=== PATIENT | female | born 1990 | race Caucasian/White ===

== ENCOUNTER 2024-04-20 18:48 | Emergency (ER) | payer OTHER, SELFPAY ==
[2024-04-20 18:51] VITALS: BP 148/86
[2024-04-20 19:12] LABS: Hematocrit 38.8 % (37.0-47.0); Hemoglobin 13.3 g/dL (12.0-16.0); Mean Corp Hgb Conc. 34.3 g/dL (33.0-37.0); Mean Corpuscular Hgb 28.8 pg (27.0-31.0); Platelet Count 362 10^3/uL (130-400); Red Blood Cell Count 4.62 10^6/uL (4.20-5.40); Red Cell Dist. Width 12.5 % (11.5-14.5); White Blood Cell Count 12.4 10^3/uL (4.8-10.8)
[2024-04-20 19:28] LABS: HCG, Serum Qualitative Screen Negative
[2024-04-20 19:29] LABS: Blood Urea Nitrogen 18 mg/dl (7-17); Calcium 9.9 mg/dl (8.4-10.2); Carbon Dioxide 22 mmol/L (22-30); Chloride 103 mmol/L (98-107); Glucose 98 mg/dl (70-99); Potassium 4.2 mmol/L (3.5-5.1); Sodium 140 mmol/L (135-145); eGFR > 60.00
[2024-04-20 20:58] VITALS: BP 143/93
[2024-04-20 22:35] VITALS: BP 118/72
[2024-04-20 22:47] LABS: Urine Albumin Negative (Neg - Trace); Urine Bilirubin Negative (Negative); Urine Character Clear (Clear); Urine Color Yellow; Urine Glucose Negative (Negative); Urine Ketone Negative (Negative); Urine Leukocyte Negative (Negative); Urine Nitrite Negative (Negative); Urine Occult Blood Negative (Negative); Urine Urobilinogen Negative (Neg - 1+)
--- NOTE | 2024-04-20 22:53 | ED.GENMED ---
History of Present Illness
<Camron Mchugh PA-C - Last Filed: 04/23/24 14:25>
General
Chief Complaint: Female Shank Boner/Gu symptoms
Source: patient
Time Seen by Provider: 04/20/24 21:36
History of Present Illness
History of Present Illness:
33-year-old female with past medical history of asthma presenting to the emergency department for evaluation of right-sided lower pelvic discomfort that started earlier today, felt similar to previous episodes of pelvic pain but a little bit more
intense and constant prompting her to come to the ER for further evaluation. Patient states when she urinates symptoms does seem to be slightly improved however will then return. Denies any urinary menses/urgency/dysuria or hematuria. Last
menstrual period was 1 week ago and has a history of ovarian cyst but is unsure if this feels similar. Denies any fevers, chills, rigors, nausea, vomiting, bowel changes. She is denying any vaginal bleeding or discharge. Social history
noncontributory.
Past History
<Camron Mchugh PA-C - Last Filed: 04/23/24 14:25>
Past History
ED Past Medical History: Asthma and Other (Anxiety); Negative HTN, Hypercholesterolemia or NIDDM
ED Past Surgical History: Orthopedic (bilateral foot surgery for plantar fascia) and Other (Bladder procedure)
Social History
Tobacco: Non-smoker
Alcohol: Occasional
Drug: None
Personal: Single
Living: with family
Employment: Employed
Family History
Family History: Other
Review of Systems
<Camron Mchugh PA-C - Last Filed: 04/23/24 14:25>
Review of Systems
All Other Systems: ROS reviewed and negative except as documented in HPI and ROS
Phy Exam
<Camron Mchugh PA-C - Last Filed: 04/23/24 14:25>
Physical Exam
Physical Exam:
GENERAL: Alert , in no apparent distress
EYE: clear conjunctiva b/l
HEAD: NCAT
ENT: o/p clr, mmm.
CARDIAC: Regular rate and rhythm .
LUNGS: Clear breath sounds bilaterally, no acute respiratory distress, no wheezes/rales/rhonchi
ABDOMEN: Soft, without focal tenderness, no r/g, no CVA tenderness negative Tineo sign, no tenderness at McBurney's point
NEUROLOGICAL: Alert and oriented
SKIN: Warm and dry, skin intact.
MUSCULOSKELETAL: well perfused.
PSYCH: Normal and appropriate interaction.
Scores
<Camron Mchugh PA-C - Last Filed: 04/23/24 14:25>
Heart Failure Risk
Heart Failure Risk Score: Not Applicable
Heart Score for Chest Pain Patients
STEMI patient?: Not applicable
Withdrawal Assessment of Alcohol
Withdrawal Assessment Completed?: Not applicable
Course
<Camron Mchugh PA-C - Last Filed: 04/23/24 14:25>
Orders/Labs/Results
Orders:
Orders
04/20/24 18:54
Test Result ONCE
04/20/24 19:00
Basic Metabolic Panel Urgent
Complete Blood Count/No Diff Urgent
HCG, Serum Qualitative Screen Urgent
04/20/24 21:44
US Transvaginal [US Pelvis W Transvag Combined] Urgent
Comment:
Reason For Exam: right lower pelvic pain
04/20/24 22:31
Urinalysis Reflex To Culture Urgent
Date Specimen was Collected: 04/20/24
Time Specimen was Collected: 22:29
04/20/24 23:22
Ketorolac [Toradol] 30 mg IV NOW STA
04/21/24 00:30
CT Abd/pelvis W Iv Cont Urgent
Reason For Exam: right pelvic pain
Abnormal Lab Results
04/20/24
19:00
WBC 12.4 H 10^3/uL
(4.8-10.8)
BUN 18 H mg/dl
(7-17)
04/20/24 19:00
04/20/24 19:00
Vital Signs
Initial and Last Documented VS:
Initial Vital Signs
Temp Pulse Resp BP Pulse Ox
98.3 F 88 22 148/86 100
04/20/24 18:51 04/20/24 18:51 04/20/24 18:51 04/20/24 18:51 04/20/24 18:51
Last Documented Vital Signs
Temp Pulse Resp BP Pulse Ox
98.5 F 68 18 117/75 99
04/21/24 03:00 04/21/24 03:00 04/21/24 03:00 04/21/24 03:00 04/21/24 03:00
<Nicholas Warner MD - Last Filed: 04/21/24 02:47>
Orders/Labs/Results
Orders:
Orders
04/20/24 18:54
Test Result ONCE
04/20/24 19:00
Basic Metabolic Panel Urgent
Complete Blood Count/No Diff Urgent
HCG, Serum Qualitative Screen Urgent
04/20/24 21:44
US Transvaginal [US Pelvis W Transvag Combined] Urgent
Comment:
Reason For Exam: right lower pelvic pain
04/20/24 22:31
Urinalysis Reflex To Culture Urgent
Date Specimen was Collected: 04/20/24
Time Specimen was Collected: 22:29
04/20/24 23:22
Ketorolac [Toradol] 30 mg IV NOW STA
04/21/24 00:30
CT Abd/pelvis W Iv Cont Urgent
Reason For Exam: right pelvic pain
Abnormal Lab Results
04/20/24
19:00
WBC 12.4 H 10^3/uL
(4.8-10.8)
BUN 18 H mg/dl
(7-17)
04/20/24 19:00
04/20/24 19:00
Vital Signs
Initial and Last Documented VS:
Initial Vital Signs
Temp Pulse Resp BP Pulse Ox
98.3 F 88 22 148/86 100
04/20/24 18:51 04/20/24 18:51 04/20/24 18:51 04/20/24 18:51 04/20/24 18:51
Last Documented Vital Signs
Temp Pulse Resp BP Pulse Ox
98.5 F 68 18 117/75 99
04/21/24 03:00 04/21/24 03:00 04/21/24 03:00 04/21/24 03:00 04/21/24 03:00
<Camron Mchugh PA-C - Last Filed: 04/23/24 14:25>
MDM/Problems Addressed
Differential Diagnosis Includes:
Ovarian cysts, less concern for torsion, appendicitis, renal/ureteral colic
MDM/Problems Addressed:
33-year-old female presenting emergency department for evaluation of right lower pelvic pain that began earlier today, mostly constant. Abdominal exam is reassuring. Difficult to ascertain whether genitourinary versus GI/appendectomy. Patient
does have a very slight leukocytosis. Will send for urine. Will start with ultrasound to evaluate for possible cyst given recent menstrual. Patient declining anything for pain at this time
<Camron Mchugh PA-C - Last Filed: 04/23/24 14:25>
*Pulse Oximetry
Patient hypoxic: no
*Critical Care Note
Total Time (30-74mins, 75-104mins- exclusive of procedures): Not Applicable
<Camron Mchugh PA-C - Last Filed: 04/23/24 14:25>
Comment
Comment:
11:24 PM: Patient now requesting something for pain. 30 mg Toradol IV ordered.
<Nicholas Warner MD - Last Filed: 04/21/24 02:47>
Update Note
Update Note:
CT report reviewed and discussed with patient - no acute findings noted. Pt will be discharged home in stable condition, with recommendation for pcp f/u with any concerns.
ED Attending Note
<Camron Mchugh PA-C - Last Filed: 04/23/24 14:25>
-
Portions of this chart may have been created with voice recognition software.� Occasional wrong word or��sound alike� substitutions may have occurred due to the inherent limitations of voice recognition software.
Discharge Plan
Departure
Patient Disposition: Home (Routine Discharge)
Date of Disposition: 04/21/24
Time of Disposition: 02:46
Patient with high blood pressure during this ER visit?: Yes
Condition: Good
Discharge Problem:
Abdominal pain
Instructions: Abdominal Pain
Prescriptions:
No Action
norethindrone ac-eth estradiol [Neva 08/31 ()] 1 EACH tablet
1 ea PO DAILY
Patient Comments:
CONTROL
fluticasone propionate 1 SPRAY spray,suspension
1 spray intranasal DAILY
Referrals:
Beryl Escoto MD [Family Provider] -
Activity Restrictions/Additional Instructions:
As discussed, please follow-up with your primary care physician with any further concerns. In ED, blood work, as well as multiple imaging studies did not reveal any abnormal findings. Please return to ED with worsening symptoms, i.e.
fever/worsening pain/vomiting.
Interventions
Interventions:
*Risk Screen - Suicide Last Done: 04/20/24 18:51
*General Assessment Last Done: 04/20/24 23:39
*Neglect/Abuse Screening Last Done: 04/20/24 18:51
ED- Fall Risk Assessment Last Done: 04/21/24 03:03
*ED COVID-19 Vaccine History Last Done: 04/20/24 23:39
*Nursing Disposition Last Done: 04/21/24 03:03
ED-Female Genitourinary Assessment Last Done: 04/20/24 22:00
Discharge Date and Time
Discharge Date/Time: 04/21/24 03:04
Print Language: MALTESE
[2024-04-20] MEDS: TORADOL 30 MG IV (23:32)
[2024-04-21 03:00] VITALS: BP 117/75
== END 2024-04-21 03:04 | disposition home or self-care (01) ==
LOC: EMR 18:48
PROVIDERS: Physician Assistant Medical; EMERGENCY PHYSICIAN Emergency Medicine; FAMILY PHYSICIAN Internal Medicine
DX: R10.31 Right lower quadrant pain (principal); R10.2 Pelvic and perineal pain; R03.0 Elevated blood-pressure reading, without diagnosis of hypertension; N83.209 Unspecified ovarian cyst, unspecified side; J45.909 Unspecified asthma, uncomplicated; F41.9 Anxiety disorder, unspecified; Z88.8 Allergy status to other drugs, medicaments and biological substances; Z91.048 Other nonmedicinal substance allergy status
CPT/HCPCS: 99285; 96374; 74177; 76830; 76856; 80048; 81003; 84703; 85027; Q9967